=== PATIENT | female | born 1935 | race American Indian/Alaskan Native ===

== ENCOUNTER 2016-03-14 11:20 | Day surgery (SDC) | payer MEDICARE ==
[2016-03-14] MEDS ORDERED: NACL 0.9% 1000 ML 1,000 ML ONE (11:56)
[2016-03-14] MEDS ORDERED: DILAUDID ONE (12:19)
[2016-03-14] MEDS ORDERED: DIPRIVAN 10 MG/ML IV ONE (12:23)
[2016-03-14] MEDS ORDERED: ANCEF/STERILE WATER 2 GM/20 ML 2 GM/20 ML SYRINGE IV ONE (12:26)
[2016-03-14] MEDS ORDERED: PEPCID IV ONE (12:35)
[2016-03-14] MEDS ORDERED: PEPCID IV NR (14:00)
[2016-03-14] MEDS ORDERED: WATER FOR IRRIG STERILE IR ONE (14:00)
[2016-03-14] MEDS ORDERED: ANCEF/STERILE WATER 2 GM/20 ML IV NR (14:00)
[2016-03-14] MEDS ORDERED: NACL 0.9% 1000 ML 1,000 ML IV SCH (14:00)
[2016-03-14] MEDS ORDERED: NEO SYNEPHRINE/NS Syringe(OR USE) IV ONE (14:27)
[2016-03-14] MEDS ORDERED: XYLOCAINE MPF 2% ONE (14:27)
--- NOTE | 2016-03-14 14:57 | Fluoroscopy Report ---
Retrograde pyelogram: Injection of contrast into the right ureter demonstrates filling of the distal half which abruptly stops at the upper sacrum. The opacified segment does appear slightly dilated but no filling defects in the opacified portion. No clear explanation for the abrupt cut off. An intraluminal obstruction needs to be ruled out. There is no contrast or visualization of proximal collecting system. No contrast identified in the left system. Impression: Possible internal obstruction of the mid right ureter.
[2016-03-14 15:01] LABS: Anion Gap 17 mmol/L; BUN/Creatinine Ratio 16.25; Blood Urea Nitrogen 26 mg/dL (7-17); Calcium 9.2 mg/dL (8.4-10.2); Carbon Dioxide 24 mmol/L (22-30); Chloride 102.6 mmol/L (98-107); Glucose 84 mg/dL (65-100); Potassium 5.2 mmol/L (3.6-5.0); Sodium 138 mmol/L (137-145)
--- NOTE | 2016-03-14 15:04 | Post Operative Note ---
Pre-op diagnosis: bilat hydro Post-op diagnosis: same Findings: as above Procedure: cysto r rpg attempted L biopsy Anesthesia: GETA Surgeon: ZHOU MCKINNON Estimated blood loss: minimal Pathology: list (bladder) Specimen disposition: to lab Condition: stable Disposition: PACU
--- NOTE | 2016-03-14 15:06 | Discharge Summary ---
Short Stay Discharge Plan Activity: up only with assistance, other Weight Bearing Status: Partial Weight Bearing Diet: low fat, low cholesterol, low salt Special Instructions: other (inc fluids ) Durable Medical Equipment Needed Upon Discharge: other ([facility] ) Follow up with: SETH HOWARD MD [Primary Care Provider] - 7 Days ZHOU MCKINNON MD [Staff Physician] - 7 Days
[2016-03-14 16:39] LABS: Hematocrit 35.8 % (30.3-42.9); Hemoglobin 11.4 gm/dl (10.1-14.3); Mean Corpuscular HGB Conc 32 % (30-34); Mean Corpuscular Hemoglobin 33 pg (28-32); Mean Corpuscular Volume 105 fl (79-97); Platelet Count 247 K/mm3 (140-440); Red Blood Count 3.42 M/mm3 (3.65-5.03); Red Cell Distribution Width 16.6 % (13.2-15.2); White Blood Count 6.2 K/mm3 (4.5-11.0)
[2016-03-14 16:40] LABS: Basophils % (Auto) 0.4 % (0.0-1.8); Eosinophils % (Auto) 4.5 % (0.0-4.3)
--- NOTE | 2016-03-14 18:52 | Operative Report ---
PREOPERATIVE DIAGNOSES: Bilateral hydronephrosis, severe right reflux, nonvisualization of left collecting system. POSTOPERATIVE DIAGNOSIS: Severe inflammation with inability to definitively define the left orifice. PROCEDURE: Right retrograde bladder biopsy. SURGEON: Collin Walsh M.D. ANESTHESIA: General. FINDINGS: This is a woman with hematuria, chronic cystitis, and bilateral hydronephrosis. Cystogram showed reflux of the right. We did not visualize the left. CT scan showed bilateral hydronephrosis. She now presents for cystoscopy. DESCRIPTION OF PROCEDURE: The patient was brought to the operating room and placed on the operating table. Following induction of anesthesia, placed in lithotomy position, prepped and draped in usual sterile fashion. Cystourethroscopy showed a severe inflammation and erythema. It was hard to find either orifice. We found a patulous right orifice within a trabeculated bladder and the dye showed a dilated right ureter. It was visualized previously on cystogram. Left side, there was lots of trabeculation and inflammation. We tried cannulating it, could not get any dye to go up. I am not sure if it was the orifice or not. A small biopsy was obtained and cauterized. The patient tolerated the procedure well and brought to recovery in stable condition. Family notified. JOB# [id number] DANIELLE/KENRICK
[2016-03-14 20:14] VITALS: BP 121/59
== END 2016-03-14 16:55 ==
LOC: OR 11:20
PROVIDERS: ATTEND Urology
DX: N13.39 Other hydronephrosis (principal); N13.70 Vesicoureteral-reflux, unspecified; N30.21 Other chronic cystitis with hematuria; N32.89 Other specified disorders of bladder; F20.9 Schizophrenia, unspecified; F03.90 Unspecified dementia, unspecified severity, without behavioral disturbance, psychotic disturbance, mood disturbance, and anxiety; D64.9 Anemia, unspecified; I12.9 Hypertensive chronic kidney disease with stage 1 through stage 4 chronic kidney disease, or unspecified chronic kidney disease; N18.4 Chronic kidney disease, stage 4 (severe); F15.90 Other stimulant use, unspecified, uncomplicated; Z98.890 Other specified postprocedural states
CPT/HCPCS: 36415; 52204; 74420; 80048; 85025; 88305; A4217; C1758; J0690; J1170; J2370; J2704; J7030; Q9967